=== PATIENT | male | born 2000 | race African-American/Black ===

== ENCOUNTER 2022-09-25 17:11 | Emergency (ER) | payer BC, OTHER ==
[~2022-09-25] VITALS: Ht 172 cm; Wt 81.0 kg
[2022-09-25] MEDS ORDERED: RX-AMOXICILLIN 500 MG CAP #3 PPK PO STA (18:05)
[2022-09-25] MEDS ORDERED: ACETAMINOPHEN 500 MG TAB (TYLENOL) PO STA (18:05)
[2022-09-25] MEDS ORDERED: AMOX500C2 PO (18:11)
--- NOTE | 2022-09-25 18:11 | ED General ---
General Chief Complaint: Dental Problems/Pain Stated Complaint: TOOTH ABCESS Nursing Triage Note: PT STATES LOWER LT DENTAL ABSCESS FROM A CRACKED TOOTH, WAS ON ABX BUT LEFT THEM BACK HOME AND HAS BEEN OFF FOR ABOUT A WEEK ([employer]) (HOLLEY CHENG) History of Present Illness Date Seen by Provider: Sep 25, 2022 Time Seen by Provider: 17:25 Initial Comments 21-year-old male presents for left dental pain, #19. Reports he had an injury to his tooth during his spring football game in July. He was referred to Dr. Burnett and was started on antibiotics. His next scheduled follow-up is in [facility]. He took a few days of his antibiotics and then left them at home in [place] when he returned to [place]. His symptoms had pretty much resolved so he did not worry about it. Yesterday he began having increased pain and swelling along his left mid mandible. He has braces in place and his mixing and molding machine operator is in [place] as well. He took ibuprofen approximately 2 hours prior to arrival but continues to have pain. Timing/Duration: Getting Worse, Intermittent Severity: Moderate Associated Systoms: Denies Symptoms (HOLLEY CHENG) Allergies and Home Medications Allergies Coded Allergies: No Known Drug Allergies (Unverified , 09/25/22) Patient Home Medication List Home Medication List Reviewed: Yes (HOLLEY CHENG) Amoxicillin (Amoxicillin) 500 Mg Capsule, 500 MG PO TID Prescribed by: HOLLEY CHENG on 09/25/22 181 Review of Systems Review of Systems Constitutional: no symptoms reported, see HPI EENTM: see HPI, dental problems, mouth pain Respiratory: no symptoms reported, see HPI Cardiovascular: no symptoms reported, see HPI Gastrointestinal: no symptoms reported, see HPI (HOLLEY CHENG) All Other Systems Reviewed Negative Unless Noted: Yes (HOLLEY CHENG) Past Ivntate-Xuduii-Mjsnjx Hx Patient Social History Tobacco Use?: No Substance use?: No Alcohol Use?: Yes Alcohol Frequency: Rarely (HOLLEY CHENG) Immunizations Up To Date First/Initial COVID19 Vaccinat: NO (HOLLEY CHENG) Past Medical History Surgery/Hospitalization HX: DENIES MED HX (HOLLEY CHENG) Family Medical History Reviewed Nursing Family Hx (HOLLEY CHENG) Physical Exam Vital Signs Vital Signs - First Documented 09/25/22 17:19 Temp 37.1 Pulse 59 Resp 18 B/P (MAP) 132/83 (99) Pulse Ox 96 O2 Delivery Room Air (MADDIE GURROLA MD) Vital Signs Capillary Refill : Less Than 3 Seconds (HOLLEY CHENG) Height, Weight, BMI Height: '" Weight: lbs. oz. kg; 27.00 BMI Method: General Appearance: No Apparent Distress, WD/WN HEENT: PERRL/EOMI, TMs Normal, Pharynx Normal, Other (pain and swelling on left mandible, pain and gingival irritation along tooth 19) Neck: Full Range of Motion, Normal Inspection, Lymphadenopathy (L) Respiratory: Chest Non Tender, Lungs Clear, Normal Breath Sounds Cardiovascular: Regular Rate, Rhythm, No Murmur, Normal Peripheral Pulses Neurologic/Psychiatric: Alert, Oriented x3, No Motor/Sensory Deficits, Normal Mood/Affect Skin: Normal Color, Warm/Dry (HOLLEY CHENG) Progress/Results/Core Measures Suspected Sepsis SIRS Temperature: Pulse: 59 Respiratory Rate: 18 Blood Pressure 132 /83 Mean: 99 (HOLLEY CHENG) Results/Orders Vital Signs/I&O 09/25/22 09/25/22 17:19 18:29 Temp 37.1 Pulse 59 62 Resp 18 16 B/P (MAP) 132/83 (99) 126/75 Pulse Ox 96 97 O2 Delivery Room Air Room Air (MADDIE GURROLA MD) Vital Signs/I&O Capillary Refill : Less Than 3 Seconds (HOLLEY CHENG) Blood Pressure Mean: 99 Departure Impression Primary Impression: Dental abscess Disposition: 01 HOME, SELF-CARE Condition: Improved Departure-Patient Inst. Decision time for Depature: 18:05 (HOLLEY CHENG) Referrals: NO,LOCAL PHYSICIAN (PCP/Family) Primary Care Physician Patient Instructions: Tooth Abscess (DC) Add. Discharge Instructions: Take Antibiotics as prescribed. Alternate between Ibuprofen 600 mg and Tylenol 650 mg every 4 hours. Warm salt water gargles every [address] up with Dr. Burnett or dentist of your choice and your mixing and molding machine operator in [facility] Talk to [employer] for referral or [employer] Return to Emergency Dept for New, Urgent healthcare needs. All discharge instructions reviewed with patient and/or family. Voiced understanding. Scripts Amoxicillin (Amoxicillin) 500 Mg Capsule 500 MG PO TID, #21 CAP 0 Refills Prov: HOLLEY CHENG 09/25/22 ATTENDING PHYSICIAN NOTE: I was physically present as attending physician in the emergency department during the care of this patient, but I was not directly involved in the decision making or delivery of care for this patient. (MADDIE GURROLA MD) Copy Copies To 1: JERMAINE VIEIRA MD, AMY ARNP Sep 25, 2022 18:11 MADDIE GURROLA MD Sep 26, 2022 11:12
[2022-09-25 18:29] VITALS: BP 126/75
== END 2022-09-25 18:29 | disposition home or self-care (01) ==
LOC: ER 17:19
DX: K04.7 Periapical abscess without sinus (principal); Z28.310 Unvaccinated for COVID-19
CPT/HCPCS: 99283